=== PATIENT | male | born 1995 | race African-American/Black ===

== ENCOUNTER 2019-06-18 00:26 | Emergency (ER) | payer SELFPAY ==
[2019-06-18] MEDS ORDERED: TETANUS & DIPHTHERIA TOX,ADULT 0.5 ML VIAL ONE (00:54)
[2019-06-18] MEDS ORDERED: TRAMADOL HCL 50 MG TAB ONE (00:56)
--- NOTE | 2019-06-18 01:18 | ER ---
Nurse's Notes [facility] Name: Juan Francisco Armendariz Age: 23 yrs Sex: Male : 1995 Arrival Date: 06/18/2019 Time: 00:30 Bed 5 Private MD: Diagnosis: Contusion of left hand;Abrasion of left hand;Fall on same level, unspecified Presentation: 06/17 00:23 Chief complaint: EMS states: Patient was walking when he felt like he may get "jumped", lp1 took off running and tripped; pain to left thumb after falling; Denies any other injuries. 00:23 Coronavirus screen: Proceed with normal triage. Ebola Screen: No symptoms or risks lp1 identified at this time. Initial Sepsis Screen: Does the patient meet any 2 criteria? No. Patient's initial sepsis screen is negative. Does the patient have a suspected source of infection? No. Patient's initial sepsis screen is negative. Risk Assessment: Do you want to hurt yourself or someone else? Patient reports no desire to harm self or others. Onset of symptoms was June 18, 2019. 00:23 Method Of Arrival: EMS: [facility] lp1 00:23 Acuity: CLEO 4 lp1 Historical: - Allergies: 00:43 No Known Allergies; lp1 - Home Meds: 00:43 None [Active]; lp1 - PMHx: 00:43 None; lp1 - PSHx: 00:43 None; lp1 - Immunization history:: Adult Immunizations up to date, Last tetanus immunization: unknown. - Social history:: Smoking status: Patient reports the use of cigarette tobacco products, cigars. Screenin:44 Abuse screen: Denies threats or abuse. Denies injuries from another. Nutritional lp1 screening: No deficits noted. Tuberculosis screening: No symptoms or risk factors identified. Fall Risk None identified. Assessment: 00:30 General: Appears in no apparent distress. Behavior is calm, cooperative. Pain: lp1 Complains of pain in left thumb Pain currently is 8 out of 10 on a pain scale. Quality of pain is described as aching. Neuro: Level of Consciousness is awake, alert, obeys commands. Cardiovascular: Patient's skin is warm and dry. Respiratory: Respiratory effort is even, unlabored. GI: No signs and/or symptoms were reported involving the gastrointestinal system. : No signs and/or symptoms were reported regarding the genitourinary system. EENT: No signs and/or symptoms were reported regarding the EENT system. Derm: Skin is dry, Skin is normal, superficial laceration to right thumb;. Musculoskeletal: Swelling present in left thumb Reports pain in left thumb. 02:11 Reassessment: Splint checked by Neelima Dial NP. lp1 02:12 Reassessment: Patient appears in no apparent distress at this time. Patient is alert, lp1 oriented x 3, equal unlabored respirations, skin warm/dry/pink. Patient demonstrates understanding of splint care. Vital Signs: 00:23 BP 120 / 96; Pulse 86; Resp 16; Temp 98.1(TE); Pulse Ox 100% on R/A; Weight 54.43 kg lp1 (R); Height 5 ft. 5 in. (165.10 cm); Pain 8/10; 00:23 Body Mass Index 19.97 (54.43 kg, 165.10 cm) lp1 ED Course: 00:30 Patient arrived in ED. snw 00:30 Neelima Dial FNP-C is PHCP. snw 00:30 Kahlil Rowe MD is Attending Physician. snw 00:40 Sherry Pierre, WILLOW is Primary Nurse. lp1 00:42 Triage completed. lp1 00:42 Arm band placed on right wrist. lp1 00:45 Patient has correct armband on for positive identification. lp1 00:53 Hand Left 3 View XRAY In Process Unspecified. EDMS 02:00 Thumb Spica- left by JAHAIRA Vee. lp1 02:11 No provider procedures requiring assistance completed. Patient did not have IV access lp1 during this emergency room visit. 02:13 Orthoglass splint: Thumb spica splint applied on left forearm. oe Administered Medications: 00:54 Drug: Tetanus-Diphtheria Toxoid Adult 0.5 ml {Control Chemist: [employer]. Exp: lp1 03/05/2021. Lot #: [id number]. } Route: IM; Site: right deltoid; 02:11 Follow up: Response: No adverse reaction lp1 00:54 Drug: UltRAM 50 mg {Note: RASS 0.} Route: PO; lp1 02:11 Follow up: Response: No adverse reaction lp1 Outcome: 01:18 Discharge ordered by MD. hernandez 02:11 Discharged to home ambulatory. lp1 02:11 Condition: good 02:11 Discharge instructions given to patient, Instructed on discharge instructions, follow up and referral plans. medication usage, Demonstrated understanding of instructions, follow-up care, medications, Prescriptions given X 1. 02:13 Patient left the ED. lp1 Signatures: Dispatcher [employer] EDMS Neelima Dial, FRONT EDGER-C FRONT EDGER-Csnw Sherry Pierre, RN RN lp1 Mariusz Au
--- NOTE | 2019-06-18 01:19 | EDPHYS ---
Physician Documentation [facility] Name: Juan Francisco Armendariz Age: 23 yrs Sex: Male : 1995 Arrival Date: 06/18/2019 Time: 00:30 Bed 5 Private MD: ED Physician Kahlil Rowe HPI: 06/17 00:34 This 23 yrs old Male presents to ER via Unassigned with complaints of thumb contusion, snw edema. 00:34 The patient or guardian reports decreased range of motion, injury, pain, tenderness. snw The complaints affect the IP of left thumb. Context: The problem was sustained outdoors, resulted from a fall, slipped, avoiding contact with someone else. Onset: The symptoms/episode began/occurred suddenly, just prior to arrival. Associated signs and symptoms: The patient has no apparent associated signs or symptoms. Severity of symptoms: At their worst the symptoms were mild, moderate. The patient has not experienced similar symptoms in the past. The patient has not recently seen a physician. Historical: - Allergies: 00:43 No Known Allergies; lp1 - Home Meds: 00:43 None [Active]; lp1 - PMHx: 00:43 None; lp1 - PSHx: 00:43 None; lp1 - Immunization history:: Adult Immunizations up to date, Last tetanus immunization: unknown. - Social history:: Smoking status: Patient reports the use of cigarette tobacco products, cigars. ROS: 00:33 Constitutional: Negative for fever, chills, and weight loss, Eyes: Negative for injury, snw pain, redness, and discharge, ENT: Negative for injury, pain, and discharge, Neck: Negative for injury, pain, and swelling, Cardiovascular: Negative for chest pain, palpitations, and edema, Respiratory: Negative for shortness of breath, cough, wheezing, and pleuritic chest pain, Abdomen/GI: Negative for abdominal pain, nausea, vomiting, diarrhea, and constipation, Back: Negative for injury and pain, : Negative for injury, bleeding, discharge, and swelling, Skin: Negative for injury, rash, and discoloration, Neuro: Negative for headache, weakness, numbness, tingling, and seizure. 00:33 MS/extremity: Positive for injury or acute deformity, abrasion, contusion, decreased range of motion, pain, of the palmar aspect of distal phalanx of left thumb. Exam: 00:31 Constitutional: This is a well developed, well nourished patient who is awake, alert, snw and in no acute distress. Head/Face: Normocephalic, atraumatic. Eyes: Pupils equal round and reactive to light, extra-ocular motions intact. Lids and lashes normal. Conjunctiva and sclera are non-icteric and not injected. Cornea within normal limits. Periorbital areas with no swelling, redness, or edema. ENT: Nares patent. No nasal discharge, no septal abnormalities noted. Tympanic membranes are normal and external auditory canals are clear. Oropharynx with no redness, swelling, or masses, exudates, or evidence of obstruction, uvula midline. Mucous membranes moist. Neck: Trachea midline, no thyromegaly or masses palpated, and no cervical lymphadenopathy. Supple, full range of motion without nuchal rigidity, or vertebral point tenderness. No Meningismus. Chest/axilla: Normal chest wall appearance and motion. Nontender with no deformity. No lesions are appreciated. Cardiovascular: Regular rate and rhythm with a normal S1 and S2. No gallops, murmurs, or rubs. Normal PMI, no JVD. No pulse deficits. Respiratory: Lungs have equal breath sounds bilaterally, clear to auscultation and percussion. No rales, rhonchi or wheezes noted. No increased work of breathing, no retractions or nasal flaring. Abdomen/GI: Soft, non-tender, with normal bowel sounds. No distension or tympany. No guarding or rebound. No evidence of tenderness throughout. Back: No spinal tenderness. No costovertebral tenderness. Full range of motion. Neuro: Awake and alert, GCS 15, oriented to person, place, time, and situation. Cranial nerves II-XII grossly intact. Motor strength 5/5 in all extremities. Sensory grossly intact. Cerebellar exam normal. Normal gait. Psych: Awake, alert, with orientation to person, place and time. Behavior, mood, and affect are within normal limits. 00:31 Musculoskeletal/extremity: ROM: limited active range of motion due to pain, in the palmar aspect of distal phalanx of left thumb, Circulation is intact in all extremities. Sensation intact. Joints: All joints are normal except the IP of left thumb displays painful range of motion, swelling. 00:31 Skin: Appearance: normal except for affected area, injury, abrasion(s), very small abrasion noted, of the palmar aspect of distal phalanx of left thumb and heel of left hand. Vital Signs: 00:23 BP 120 / 96; Pulse 86; Resp 16; Temp 98.1(TE); Pulse Ox 100% on R/A; Weight 54.43 kg lp1 (R); Height 5 ft. 5 in. (165.10 cm); Pain 8/10; 00:23 Body Mass Index 19.97 (54.43 kg, 165.10 cm) lp1 MDM: 00:30 Patient medically screened. snw 01:19 Data reviewed: vital signs, nurses notes. Data interpreted: Pulse oximetry: on room air snw is 100 %. Interpretation: normal. Counseling: I had a detailed discussion with the patient and/or guardian regarding: the historical points, exam findings, and any diagnostic results supporting the discharge/admit diagnosis, the presence of at least one elevated blood pressure reading (>120/80) during this emergency department visit, radiology results, to return to the emergency department if symptoms worsen or persist or if there are any questions or concerns that arise at home. Response to treatment: the patient's symptoms have mildly improved after treatment, the patient's symptoms have markedly improved after treatment. Special discussion: I have referred the patient to see his PCP for further evaluation of high blood pressure. Based on the history and exam findings, there is no indication for further emergent testing or inpatient evaluation. I discussed with the patient/guardian the need to see the primary care provider for further evaluation of the symptoms. 06/17 00:31 Order name: Hand Left 3 View XRAY snw 06/17 00:31 Order name: Wound Care; Complete Time: 02:12 snw 06/17 01:17 Order name: Thumb Spica Splint: preformed - left; Complete Time: 02:11 snw Administered Medications: 00:54 Drug: Tetanus-Diphtheria Toxoid Adult 0.5 ml {Python Developer: [email or web address]. Exp: lp1 03/05/2021. Lot #: [id number]. } Route: IM; Site: right deltoid; 02:11 Follow up: Response: No adverse reaction lp1 00:54 Drug: UltRAM 50 mg {Note: RASS 0.} Route: PO; lp1 02:11 Follow up: Response: No adverse reaction lp1 Disposition: 06:41 Co-signature as Attending Physician, Kahlil Rowe MD I agree with the assessment and tw4 plan of care. Disposition: 06/18/19 01:18 Discharged to Home. Impression: Contusion of left hand, Abrasion of left hand, Fall on same level, unspecified. - Condition is Stable. - Discharge Instructions: Abrasion, Cast or Splint Care, Adult, Hand Contusion, Fall Prevention in the Home, Hypertension, RICE for Routine Care of Injuries, VIS, Tetanus, Diphtheria (Td) - [facility]. - Prescriptions for Mobic 7.5 mg Oral Tablet - take 1 tablet by ORAL route once daily take with food; 20 tablet. - Medication Reconciliation Form, Thank You Letter, Antibiotic Education, Prescription Opioid Use form. - Follow up: Emergency Department; When: As needed; Reason: Worsening of condition. Follow up: Private Physician; When: 2 - 3 days; Reason: Recheck today's complaints, Continuance of care, Re-evaluation by your physician. - Problem is new. - Symptoms are unchanged. Signatures: Dispatcher [employer] EDMS Neelima Dial, ALIYA-C BUILDING CONSTRUCTION ENGINEER-Csnw Sherry Pierre, RN RN lp1 Kahlil Rowe MD MD tw4 Corrections: (The following items were deleted from the chart) 02:13 01:18 06/18/2019 01:18 Discharged to Home. Impression: Contusion of left hand; Abrasion lp1 of left hand; Fall on same level, unspecified. Condition is Stable. Forms are Medication Reconciliation Form, Thank You Letter, Antibiotic Education, Prescription Opioid Use. Follow up: Emergency Department; When: As needed; Reason: Worsening of condition. Follow up: Private Physician; When: 2 - 3 days; Reason: Recheck today's complaints, Continuance of care, Re-evaluation by your physician. Problem is new. Symptoms are unchanged. snw
--- NOTE | 2019-06-18 08:04 | RAD REPORT ---
EXAM DESCRIPTION: RAD -Hand Left 3 View - 06/18/2019 12:53 am CLINICAL HISTORY: Left hand pain status post injury FINDINGS: No fracture or dislocation is seen.
== END 2019-06-18 02:13 | disposition home or self-care (01) ==
LOC: ER 00:26
DX: S60.512A Abrasion of left hand, initial encounter (principal); W01.0XXA Fall on same level from slipping, tripping and stumbling without subsequent striking against object, initial encounter; Y93.9 Activity, unspecified; Y92.89 Other specified places as the place of occurrence of the external cause
CPT/HCPCS: 90471; 90714; 99284